=== PATIENT | male | born 1985 | race Caucasian/White ===

== ENCOUNTER 2024-09-21 14:15 | Outpatient (AMB) | payer OTHER, SELFPAY ==
--- NOTE | 2024-09-21 14:11 | A.OFFPC_ITS ---
Vital Signs 09/21/24 14:20 Height 5 ft 10 in Weight 162 lb BMI 23.2 BP 122/76 Respiration 14 Pulse 47 L Pulse Source Pulse Oximeter Temp 97.8 F Temp Source Temporal Artery Scan Pulse Oximetry (%) 99 Oxygen Delivery Method Room Air Intake Visit Reasons: establish care Train Driver Required: No Accompanied by: Self / Same As Patient Allergies No Known Allergies Allergy (Verified 09/21/24 14:39) Medication List - Last Reconciled 09/21/24 by Ina Diaz PA-C No Known Home Meds Tobacco use date assessed: 09/21/24 Dental Screening Dental Screen Date: 09/21/24 Did you have a dental visit in the last 12 months?: Yes Did you have a dental problem in the last 6 months where you did not have access to dental care?: No Was dental information given to patient?: Patient has dentist HPI establish care HPI Details The patient is a 39-year-old male presenting to establish new primary care provider due to patient just moved here from the [employer] [place] from [facility] he is currently at [facility]. He is presenting with left knee pain. The pain started following a skiing injury in June, characterizing as severe initially, affecting mobility and necessitating assistance. Despite engaging in physical therapy, the pain persisted and maintains a sharp quality upon weight- bearing activities. Recently, the pain has taken on a deeper, dull quality but continues to be provoked by activities such as ascending stairs. Swelling is consistently noted around the kneecap, while the lower leg remains unaffected. An MRI had been previously recommended in [facility], though not completed before his relocation. Previous blood assessments show no abnormalities. 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 - The patient is ; his is Rad xiong and currently residing with him. - Regularly engages in cardiovascular ex ercise, contributing to a naturally low resting heart rate. - Resides in [place]. [facility] Medical History (Updated 09/21/24 @ 15:07 by Ina Diaz PA-C) Erectile dysfunction Establishing care with new doctor, encounter for Left knee pain Skiing accident Family History Father No problems noted. Mother No problems noted. Social History Housing: Apartment Alcohol intake: current Alcohol intake frequency: a few times a month Patient Tobacco Use Status: Never used Tobacco service: No Current occupational status: employed Cognitive needs: No Hearing needs: No Vision needs: No Questionnaire PHQ-9 Over the last 2 weeks, how often have you been bothered by any of the following problems? 1. Little interest or pleasure in doing things: not at all 2. Feeling down, depressed, or hopeless: not at all 3. Trouble falling or staying asleep, or sleeping too much: not at all 4. Feeling tired or having little energy: not at all 5. Poor appetite or overeating: not at all 6. Feeling bad about yourself - or that you are a failure or have let yourself or your family down: not at all 7. Trouble concentrating on things, such as reading the newspaper or watching television: not at all 8. Moving or speaking so slowly that other people could have noticed. Or the opposite - being so fidgety or restless that you have been moving around a lot more than usual: not at all 9. Thoughts that you would be better off or of hurting yourself in some way: not at all Total score: 0 Depression Screening Interpretation: Negative Depression Screening Done: Yes 20080 - PHQ-9 Billing: Yes Source: Developed by Drs. Theron Padilla, Elda Talley, Demetri Fan and colleagues, with an educational maricruz from [employer]. Thrive Questionnaire Date Thrive assessed: 09/21/24 I am a: Patient What is your living situation today?: I have a steady place to live Within the past 12 months, did the food you bought not last and you didn't have the money to get more?: Never true Within the past 12 months, did you worry whether your food would run out before you got money to buy more?: Never true Do you have trouble paying for medicines?: No Do you have trouble getting transportation to medical appointments?: No Do you have trouble paying your heating and electricity bill?: No Do you have trouble taking care of your child, family member or friend?: No Do you have trouble with day-to-day activities such as bathing, preparing meals, shopping, managing finances, etc.?: No Are you currently unemployed and looking for a job?: No Are you interested in more education?: No Please select the resources that you would like help with: None THRIVE Score: 0 AUDIT C Alcohol Use Questionnaire (AUDIT-C) 1. How often do you have a drink containing alcohol?: 2-4 times a month 2. How many drinks containing alcohol do you have on a typical day when you are drinking?: 1 or 2 3. How often do you have six or more drinks on one occasion?: Never Total Score: 2 Score Reviewed/Action Taken: No YESICA-7 AMB Questionnaire YESICA-7 Date YESICA - 7 assessed: 09/21/24 Feeling nervous, anxious, or on edge: 0 = Not at all Not being able to stop or control worryin = Not at all Worrying too much about different things: 0 = Not at all Trouble relaxin = Not at all Being so restless that it is hard to sit still: 0 = Not at all Becoming easily annoyed or irritable: 0 = Not at all Feeling afraid as if something awful might happen: 0 = Not at all Total YESICA-7 score (0-4 normal; 5-9 mild; 10-14 moderate; 15-21 severe): 0 Source: Developed by Drs. Theron Padilla, Elda Talley, Demetri Fan and colleagues, with an educational maricruz from [employer]. YESICA-7 Assessment Billing YESICA-7 Assessment Tool: YESICA-7 Assessment 91950 Review of Systems Const Details: - Musculoskeletal: Reports left knee pain, swelling localized to the kneecap; denies additional leg swelling. - Constitutional: Denies recent unintended weight changes. - Gastrointestinal: Denies black or bloody stools. - Cardiovascular: Denies chest pain. - Respiratory: Denies shortness of breath. - Genitourinary: Reports erectile dysfunction; denies changes in urination patterns. Physical exam (Primary Care) Vital Signs: Last Vital Signs Temp 97.8 F 09/21/24 14:20 Pulse 47 L 09/21/24 14:20 Resp 14 09/21/24 14:20 BP 122/76 09/21/24 14:20 Pulse Ox 99 09/21/24 14:20 Oxygen Delivery Method Room Air 09/21/24 14:20 Care Plan Goal for BP management: <140/90 at Goal BMI result Body Mass Index 23.2 normal bmi Tobacco/Smoking Status: Tobacco use Status Tobacco use date assessed 09/21/24 09/21/24 14:13 Patient Tobacco Use Status Never used Tobacco 09/21/24 14:24 PHQ-9: PHQ-9 Score PHQ-9: Total score 0 09/21/24 14:25 Depression Screening Interpretation: Negative Thrive Assessment: Date of Thrive Assessment Date Thrive assessed 09/21/24 09/21/24 14:13 Const Other: Appearance: Alert. Oriented X3. No acute distress. Head: Normal external exam. Normocephalic. Atraumatic. Eyes: Pupils are equal, round, and reactive to light. Extraocular movements intact. Conjunctiva and sclera normal. Eyelids normal. Ears: External auditory canal normal. Tympanic membranes normal. Throat: Pharynx normal. Uvula midline. Moist mucous membranes. Neck: Normal inspection. Neck supple. Full range of motion. No adenopathy. Thyroid Normal. No meningeal signs. No neck mass noted. Cardiovascular: Normal heart rate and rhythm. Heart sound normal. No murmurs noted. Pulses normal throughout. Respiratory: No respiratory distress. Painless inspiration. Breath sounds normal. No wheezes/rales/rhonchi noted. Chest nontender. No accessory muscle usage noted or decreased air movement noted. Abdomen: Soft and nontender. Bowel sounds normal in all 4 quadrants. No distention noted. No organomegaly noted. No visible injury noted. Back: No costovertebral angle tenderness. Full range of motion noted. Skin: Skin warm and dry. Normal skin color. Normal skin turgor. No rashes/lesions/lacerations noted. Extremities: Swelling noted around the left knee at the medial and lateral aspect of the knee along with the suprapatellar. Painful movements when weight is applied to the left knee. No lower extremity edema beyond the knee. Extremities exhibit normal range of motion. Extremities nontender except for the left knee. Neuro: Oriented X 3. No motor deficit. No sensory deficit. Reflexes normal. Coding Level of Care Code New Pt Level 4 (07751) Complex EM visit Add On G2211 Diagnoses Establishing care with new doctor, encounter for Z76.89 Erectile dysfunction N52.9 Left knee pain M25.562 Additional Codes PHQ-9 - 00137 - PHQ-9 Billing: Yes ([id number]) YESICA-7 Assessment Billing - YESICA-7 Assessment Tool: YESICA-7 Assessment 80331 ([id number]) Assessment & Plan Assessment & Plan (1) Establishing care with new doctor, encounter for: Code(s): Z76.89 - Persons encountering health services in other specified circumstances Category: Medical (2) Erectile dysfunction: Code(s): N52.9 - Male erectile dysfunction, unspecified Category: Medical Plan: Management includes continuation of Cialis 10 mg. Additional evaluation with testosterone level testing will be conducted to explore underlying causes. Patient education on condition implications and future fertility considerations provided. Condition is chronic and stable continue to monitor. (3) Left knee pain: Comment: from Skiing accident Code(s): M25.562 - Pain in left knee Category: Medical Plan: The patient has been experiencing persistent pain in the left knee following a skiing injury. An MRI has been ordered to assess potential meniscal or ligamentous involvement, providing guidance for further management, which may include surgical considerations if indicated. Plan Plan Patient was informed and verbally consented to the use of an ambient scribe for clinic note documentation during this visit. 1. Left Knee Pain The patient has been experiencing persistent pain in the left knee following a skiing injury. An MRI has been ordered to assess potential meniscal or ligamentous involvement, providing guidance for further management, which may include surgical considerations if indicated. 2. Erectile Dysfunction Management includes continuation of Cialis 10 mg. Additional evaluation with testosterone level testing will be conducted to explore underlying causes. Patient education on condition implications and future fertility considerations provided. I reviewed with the patient the potential causes for his left knee pain, including meniscal or ligamentous damage, and the rationale for pursuing MRI imaging. I explained the importance of confirming the cause to appropriately direct treatment, which might include rest, continued physical therapy, or possibly surgical intervention, based on the MRI findings. Regarding erectile dysfunction, we discussed the ongoing need for Cialis, and I advised further hormonal evaluation to exclude underlying causes, with potential referral to urology for targeted management should deficiencies be noted. Recommendations were given for continued cardiovascular exercise while avoiding exacerbating activities like high-impact sports until knee evaluation is completed. I advised follow-up after MRI results to discuss further management, and emphasized the open line of communication via patient portal for any concerns or symptoms arise before the next scheduled visit. Orders: Orders Comprehensive [place]. Panel Fast Today Z00.00 - Encounter for general adult medical examination without abnormal findings Hemoglobin A1c Today Z00.00 - Encounter for general adult medical examination without abnormal findings Vitamin B12 and Folate Today Z00.00 - Encounter for general adult medical examination without abnormal findings TSH reflex Free T4 Today Z00.00 - Encounter for general adult medical examination without abnormal findings Testosterone, Free/Total Today Z00.00 - Encounter for general adult medical examination without abnormal findings MR knee LT wo con Today M25.562 - Pain in left knee, V00.328A - Other snow-ski accident, initial encounter Complete Blood Count Auto Diff Today Z00.00 - Encounter for general adult medical examination without abnormal findings C Reactive Protein Today Z00.00 - Encounter for general adult medical examination without abnormal findings Lipid Panel Today Z00.00 - Encounter for general adult medical examination without abnormal findings Liver Panel Today Z00.00 - Encounter for general adult medical examination without abnormal findings Magnesium Today Z00.00 - Encounter for general adult medical examination without abnormal findings Vitamin D 25-OH Total Today Z00.00 - Encounter for general adult medical examination without abnormal findings PSA,Total (Free>4and<10) Today Z00.00 - Encounter for general adult medical examination without abnormal findings Testosterone, Total Today Z00.00 - Encounter for general adult medical examination without abnormal findings Dihydrotestosterone Today Z00.00 - Encounter for general adult medical examination without abnormal findings DHEA Sulfate Today Z00.00 - Encounter for general adult medical examination without abnormal findings Medications: New tadalafil (Cialis) administer approximately 30min before sexual activity; do not use more than 1 dose per 24hrs 10 mg PO DAILY PRN 90 tabs 1RF sexual activity Patient Instructions: - Await contact regarding MRI appointment; follow up with our office if not contacted within one month. - Continue prescribed Cialis 10 mg as needed for erectile dysfunction. - Engage in low-impact cardiovascular exercises, avoiding activities that worsen knee pain. - Monitor knee swelling and note any changes in symptoms, seeking care if there is a significant increase in pain or swelling. - Obtain prescribed blood tests, including testosterone level, within the next month to assess any underlying causes for erectile dysfunction. - Use the patient portal to communicate any new symptoms or concerns, and for prescriptions refills and lab reminders.
[2024-09-21 14:20] VITALS: BP 122/76; PULSE 47; RESP 14; TEMP 36.6; O2SAT 99; BMI 23.2
== END 2024-09-21 14:59 | disposition home or self-care (01) ==
LOC: HO.HMCSH 14:15
PROVIDERS: PCP Internal Medicine; Visit Provider Physician Assistant Medical
DX: Z76.89 Persons encountering health services in other specified circumstances (principal); N52.9 Male erectile dysfunction, unspecified; M25.562 Pain in left knee

== ENCOUNTER → 2024-09-21 14:15 | Outpatient (BNVA) | payer OTHER, SELFPAY | PROVIDERS: PCP Internal Medicine; Visit Provider Physician Assistant Medical | DX: Z76.89 Persons encountering health services in other specified circumstances (principal); N52.9 Male erectile dysfunction, unspecified; M25.562 Pain in left knee | CPT/HCPCS: 96127; 99202 ==

== ENCOUNTER → 2024-10-05 07:16 | Outpatient (BNV) | payer OTHER, SELFPAY | PROVIDERS: Visit Provider Radiology Diagnostic Radiology | DX: M25.562 Pain in left knee (principal) | CPT/HCPCS: 73721 ==

== ENCOUNTER 2024-10-05 07:23 | Outpatient (REF) | payer OTHER, SELFPAY ==
--- NOTE | ~2024-10-05 | MR_ITS ---
EXAMINATION: MRI LEFT KNEE WITHOUT CONTRAST HISTORY: M25.562 - Pain in left knee COMPARISON: There are no prior studies available for comparison. TECHNIQUE: Coronal T1 and fat-suppressed proton density, sagittal proton density and fat-suppressed proton density, and axial fat suppressed T2 weighted MR images of the left knee were obtained. FINDINGS: Bone marrow: There is a moderate-sized region of bone marrow edema involving the anterior aspect of the lateral femoral condyle, consistent with a bone contusion. Joint effusion: There is a large joint effusion. Mosqueda's cyst: There is no Mosqueda's cyst. Articular cartilage: There are cartilage fissures involving the patellar cartilage. Muscles/soft tissues: The visualized muscles demonstrate normal signal intensity. Anterior cruciate ligament: Intact Posterior cruciate ligament: Intact Medial collateral ligament: Intact Lateral collateral ligament: Intact Medial meniscus: Intact Lateral meniscus: Intact Flexor mechanism: The popliteus, gastrocnemius, and hamstring tendons are intact. Quadriceps tendon: Intact Patellar tendon: Intact Patellar retinacula: Intact MR/MR knee LT wo con IMPRESSION: 1. Bone contusion involving the anterior aspect of the lateral femoral condyle. 2. Cartilage fissures involving the patellar cartilage. Electronically signed by: Theron Johnson MD 10/05/2024 08:33 AM EDT
== END 2024-10-05 07:24 | disposition home or self-care (01) ==
LOC: HO.MRI 07:23
PROVIDERS: Visit Provider Physician Assistant Medical
DX: M25.562 Pain in left knee (principal); V00.328D Other snow-ski accident, subsequent encounter
CPT/HCPCS: 73721

== ENCOUNTER 2024-11-28 09:22 | Outpatient (REF) | payer OTHER, SELFPAY ==
--- NOTE | ~2024-11-28 | XR_ITS ---
EXAMINATION: XR SHOULDER, LEFT CLINICAL INFORMATION: M25.512 - Pain in left shoulder COMPARISON: None available. TECHNIQUE: AP external rotation, Grashey, scapular Y, and axillary views of the left shoulder. FINDINGS: Normal bone mineralization. No fracture or dislocation. Normal alignment. The glenohumeral joint is normal. The AC joint is normal. There is a neutral lateral acromion. No undersurface spurring. The subacromial space is preserved. Within the proximal humeral diaphysis, there is a mixed lytic and sclerotic cortically based lesion with thin zone of transition, no significant endosteal scalloping, and no permeative or erosive changes. This has features consistent with a benign lesion, namely a fibrous cortical defect. Remainder of the soft tissue and bony structures appear normal. XR/XR shoulder LT min 2V IMPRESSION: 1. Normal left shoulder. 2. Bone lesion in the proximal humeral diaphysis consistent with a benign fibrous cortical defect. No further imaging recommended. Electronically signed by: George Deleon MD 11/28/2024 11:36 AM EDT
== END 2024-11-28 09:23 | disposition home or self-care (01) ==
LOC: HO.HMGCX 09:22
PROVIDERS: PCP Physician Assistant Medical; Visit Provider Physician Assistant Medical
DX: M25.512 Pain in left shoulder (principal); Z13.31 Encounter for screening for depression
CPT/HCPCS: 73030; 96127; 99212

== ENCOUNTER 2024-11-28 09:22 | Outpatient (AMB) | payer OTHER, SELFPAY ==
[2024-11-28 09:22] VITALS: BP 120/72; PULSE 47; RESP 16; TEMP 37; O2SAT 97; BMI 23.5
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
== END 2024-11-28 10:01 | disposition home or self-care (01) ==
LOC: HO.HMCSH 09:22
PROVIDERS: Visit Provider Physician Assistant Medical
DX: M25.519 Pain in unspecified shoulder (principal)

== ENCOUNTER → 2024-11-28 11:04 | Outpatient (BNV) | payer OTHER, SELFPAY | PROVIDERS: PCP Physician Assistant Medical; Visit Provider Radiology Diagnostic Radiology | DX: M85.01 Fibrous dysplasia (monostotic), shoulder (principal) | CPT/HCPCS: 73030 ==

== ENCOUNTER → 2024-12-01 15:22 | Outpatient (BNV) | payer OTHER, SELFPAY | PROVIDERS: PCP Physician Assistant Medical; Visit Provider Radiology Diagnostic Radiology | DX: S43.432A Superior glenoid labrum lesion of left shoulder, initial encounter (principal) | CPT/HCPCS: 73221 ==

== ENCOUNTER 2024-12-01 15:28 | Outpatient (REF) | payer OTHER, SELFPAY ==
--- NOTE | ~2024-12-01 | MR_ITS ---
EXAMINATION: MRI Shoulder without contrast, left TECHNIQUE: Multiplanar multisequence MR imaging through an upper extremity joint without contrast. INDICATION: Left shoulder pain PRIOR: November 28, 2024 x-ray FINDINGS: Rotator Cuff: There is fluid signal within supraspinatus tendon at the greater tuberosity consistent with a bursal sided partial-thickness tear involves less than half the tendon thickness. There are no other tears. Labrum: There is ill-defined intermediate signal at the biceps labral junction consistent with a small focal subtle tear. There is extension into the posterior labrum down to 3:00. Long biceps tendon: The long biceps tendon is intact and not displaced from the groove. Acromioclavicular joint: AC joint is intact and not degenerated. Acromial morphology is flat, type I. There is no subacromial subdeltoid bursal effusion. There is trace fluid. Axillary pouch: The axillary pouch is intact. Articular cartilage: There are no articular cartilage defects. Bones/Marrow: The cephalad margin of the central medullary lesion in the proximal humeral diaphysis demonstrates hypointensity on T1 imaging and hyperintensity on fluid sensitive sequences with sclerotic margins. Soft tissues: There is no muscle edema, atrophy, or fatty streaking. MR/MR shoulder LT wo con IMPRESSION: There is a shallow bursal sided partial-thickness tear of supraspinatus tendon at the footprint involving less than half the tendon thickness. SLAP tear extends posteriorly to 3:00. Incompletely imaged intramedullary lesion in the mid proximal humeral diaphysis. On recent x-ray, it has a nonaggressive appearance. Electronically signed by: Juan A Henriquez MD 12/01/2024 04:09 PM EDT
== END 2024-12-01 15:29 | disposition home or self-care (01) ==
LOC: HO.MRI 15:28
PROVIDERS: PCP Physician Assistant Medical; Visit Provider Physician Assistant Medical
DX: M25.512 Pain in left shoulder (principal)
CPT/HCPCS: 73221

== ENCOUNTER 2025-01-18 08:51 | Outpatient (AMB) | payer OTHER, SELFPAY ==
[2025-01-18 09:05] VITALS: BMI 23.4
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
== END 2025-01-18 09:43 | disposition home or self-care (01) ==
LOC: HO.HOS 08:52
PROVIDERS: PCP Physician Assistant Medical; Visit Provider Physician Assistant
DX: M75.102 Unspecified rotator cuff tear or rupture of left shoulder, not specified as traumatic (principal); S43.439A Superior glenoid labrum lesion of unspecified shoulder, initial encounter
CPT/HCPCS: 99203; G2211

== ENCOUNTER → 2025-01-18 08:51 | Outpatient (BNVA) | payer OTHER, SELFPAY | PROVIDERS: PCP Physician Assistant Medical; Visit Provider Physician Assistant | DX: M75.102 Unspecified rotator cuff tear or rupture of left shoulder, not specified as traumatic (principal); S43.432D Superior glenoid labrum lesion of left shoulder, subsequent encounter | CPT/HCPCS: 99202 ==

== ENCOUNTER 2025-01-20 13:31 | Outpatient (AMB) | payer OTHER, SELFPAY ==
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
[2025-01-20 13:35] VITALS: BP 132/61; PULSE 98; RESP 16; TEMP 36.5; O2SAT 99; BMI 23.4
== END 2025-01-20 15:24 | disposition home or self-care (01) ==
LOC: HO.HMCSH 13:31
PROVIDERS: PCP Physician Assistant Medical; Visit Provider Physician Assistant Medical
DX: M72.2 Plantar fascial fibromatosis (principal); R10.9 Unspecified abdominal pain

== ENCOUNTER → 2025-01-20 13:31 | Outpatient (BNVA) | payer OTHER, SELFPAY | PROVIDERS: PCP Physician Assistant Medical; Visit Provider Physician Assistant Medical | DX: M72.2 Plantar fascial fibromatosis (principal); R10.9 Unspecified abdominal pain; M79.671 Pain in right foot; M79.672 Pain in left foot | CPT/HCPCS: 96127; 99212 ==

== ENCOUNTER 2025-02-08 12:50 | Outpatient (REF) | payer OTHER, SELFPAY ==
--- NOTE | ~2025-02-08 | XR_ITS ---
Exam: XR FOOT 3 OR MORE VIEWS BILATERAL, bilateral foot x-rays TECHNIQUE: AP, OBL and lateral views lower extremity, bilateral feet INDICATION: M79.671 - Pain in right foot COMPARISON: None available. FINDINGS: RIGHT FOOT: Joint spaces are preserved. There are no degenerative changes. There is no joint malalignment. There are no calcaneal spurs. There is a bipartite medial sesamoid of the great toe. 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 LEFT FOOT: Joint spaces are preserved. There are no degenerative changes. There is no joint malalignment. There are no calcaneal spurs. There is a bipartite lateral sesamoid of the great toe. 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 XR/XR Foot Hardik 3V IMPRESSION: Right foot: Unremarkable right foot Left foot: Unremarkable left foot. Electronically signed by: Juan A Henriquez MD 02/08/2025 02:13 PM EDT
[2025-02-08 14:33] LABS: MANUAL DIFF FLAG NO
[2025-02-08 15:06] LABS: Hematocrit 39.8 % (42.0-52.0); Hemoglobin 14.5 g/dl (14.0-18.0); Imm Gran Abs Auto 0.01 X10*3/uL (0.00-0.03); Imm Gran Pct Auto 0.2 % (0.0-0.4); Lymphocytes Absolute Auto 1.8 X10*3/uL (1.2-4.9); Mean Corpuscular HGB Conc 36.4 g/dl (31.0-36.0); Mean Corpuscular Hemoglobin 31.5 pg (27.0-33.0); Mean Corpuscular Volume 86.5 fL (80.0-98.0); NRBC Abs Auto 0.000 X10*3/uL (0.0-0.012); NRBC Pct Auto 0.0 /100WBC (0.0-0.2); Platelet Count 223 X10*3/uL (160-400); Red Blood Count 4.60 X10*6/uL (4.60-5.80); White Blood Count 5.5 X10*3/uL (4.8-10.8)
[2025-02-08 15:41] LABS: Appearance Urine Clear; Glucose Urine UA Negative (Negative); PH 6.5 (5.0-9.0); Specific Gravity - Urine 1.025 (1.005-1.025); UMIC TRIGGER UACC YES
[2025-02-08 16:17] LABS: PSA,Total (Free>4and<10) 0.49 ng/mL (0.00-4.00)
[2025-02-08 16:30] LABS: Folate 9.6 ng/mL (> or = 4.0); Vitamin B12 428 pg/mL (200-900)
[2025-02-08 18:01] LABS: Alanine Aminotransferase 22 U/L (0-40); Albumin Level 4.9 g/dL (3.5-5.0); Alkaline Phosphatase 65 U/L (39-117); Anion Gap 11 (12-20); Aspartate Amino Transferase 32 U/L (5-37); Blood Urea Nitrogen 16 mg/dL (9-16); Calcium 9.3 mg/dL (8.4-10.2); Carbon Dioxide 28 mmol/L (22-29); Chloride 107 mmol/L (96-108); Cholesterol 173 mg/dL (<200); Estimated Glomerular Filt Rate > 60; HDL Cholesterol 41 mg/dL (>40); Magnesium 2.3 mg/dL (1.6-2.6); Potassium 3.9 mmol/L (3.3-5.1); Sodium 142 mmol/L (135-145); Total Protein 7.2 g/dL (6.5-8.0); Triglycerides 168 mg/dL (<150)
[2025-02-13 15:03] LABS: Testosterone, Free 54.3 pg/mL (35.0-155.0)
== END 2025-02-08 12:51 | disposition home or self-care (01) ==
LOC: HO.XRAY 12:50
PROVIDERS: Absent Provider Physician Assistant Medical; PCP Physician Assistant Medical; Visit Provider Student in an Organized Health Care Education/Training Program
DX: Z00.00 Encounter for general adult medical examination without abnormal findings (principal); M72.2 Plantar fascial fibromatosis; M77.52 Other enthesopathy of left foot and ankle; M77.51 Other enthesopathy of right foot and ankle; R10.9 Unspecified abdominal pain; Z12.5 Encounter for screening for malignant neoplasm of prostate; Z13.6 Encounter for screening for cardiovascular disorders; Z13.1 Encounter for screening for diabetes mellitus; Z79.899 Other long term (current) drug therapy
CPT/HCPCS: 36415; 73630; 80053; 80061; 81001; 82248; 82306; 82607; 82627; 82642; 82746; 83036; 83735; 84153; 84402; 84403; 84443; 85025; 85027; 86140; 99202

== ENCOUNTER 2025-02-08 12:50 | Outpatient (AMB) | payer OTHER, SELFPAY ==
[2025-02-08 13:02] VITALS: BMI 23.0
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
== END 2025-02-08 13:23 | disposition home or self-care (01) ==
PROVIDERS: PCP Physician Assistant Medical; Visit Provider Student in an Organized Health Care Education/Training Program
DX: M79.671 Pain in right foot (principal); M79.672 Pain in left foot; M72.2 Plantar fascial fibromatosis; M77.52 Other enthesopathy of left foot and ankle; M77.51 Other enthesopathy of right foot and ankle
CPT/HCPCS: 99204

== ENCOUNTER → 2025-02-08 13:53 | Outpatient (BNV) | payer OTHER, SELFPAY | PROVIDERS: Absent Provider Physician Assistant Medical; PCP Physician Assistant Medical; Visit Provider Radiology Diagnostic Radiology | DX: M79.673 Pain in unspecified foot (principal) | CPT/HCPCS: 73630 ==

== ENCOUNTER 2025-02-24 10:08 | Outpatient (AMB) | payer OTHER, SELFPAY ==
[2025-02-24 10:17] VITALS: BMI 23.0
--- NOTE | 2025-02-24 10:17 | A.OFFVIS_ITS ---
Vital Signs 02/24/25 10:17 Height 5 ft 10 in Weight 160 lb BMI 23.0 Intake Visit Reasons: OV - Bilateral Plantar Fasciitis s/p XR Intake Note: Dimitrios is a 39 year old male who presents today for a follow up of his Bilateral Plantar Fasciitis. At his last visit he was prescribed a Medrol Dose Pack and given a home exercise program. If he does not find any relief we would consider night splints, a referral to physical therapy and possible injections. Xrays obtained 02/08/25. Patient reports he has not seen any improvement at this time Allergies No Known Allergies Allergy (Verified 02/24/25 10:18) HPI Comments Details: The patient is a 39-year-old male presenting for follow-up of bilateral plantar fasciitis. The patient reports that the pain has remained unchanged since the last visit, despite taking the Medrol Dosepak, which did not result in any side effects. He states he has been doing the at-home stretching exercises as well. Patient states he continues to use OTC inserts. He denies any new pedal injuries. He denies any other pedal concerns. has been using inserts and performing exercises, including massaging, as part of the management plan. [facility] Medical History (Updated 02/28/25 @ 08:35 by Vivien Ricardo DPM) Os trigonum Microscopic hematuria Other enthesopathy of right foot and ankle Other enthesopathy of left foot and ankle Plantar fasciitis, bilateral Abdominal pain Plantar fasciitis Bilateral foot pain Bone lesion SLAP (superior labrum from anterior to posterior) tear Tear of left supraspinatus tendon Left shoulder pain Other articular cartilage disorders, unspecified site Erectile dysfunction Establishing care with new doctor, encounter for Left knee pain Skiing accident Family History Father No problems noted. Mother No problems noted. Social History Housing: Apartment Alcohol intake: current Alcohol intake frequency: a few times a month Patient Tobacco Use Status: Never used Tobacco service: Yes Current occupational status: employed Current occupation: [employer], left hand dominant Cognitive needs: No Hearing needs: No Vision needs: No Review of Systems Const Details: - Musculoskeletal: Reports continued bilateral foot pain due to plantar fasciitis. All systems reviewed & are unremarkable except as noted in HPI and below Physical Exam Vital Signs: BMI result Body Mass Index 23.0 Extrem Other: Bilateral lower extremity focused physical exam: Derm: Skin supple and turgor WNL. No open lesions, abrasions, or wounds noted. No clinical signs of infection noted. No ecchymosis or discoloration noted. No maceration noted. Vasc: DP/PT pulses palpable. CFT < 3 secs. Temp gradient is warm to warm. No edema noted. Pedal hair present. No varicosities noted. Neuro: Protective sensations grossly intact. MSK: Pain on palpation to the plantar aspects of the calcaneus in the area of the medial and central calcaneal tubercles. Positive windlass mechanisms B/L with taut presentation of plantar fascia B/L. Pain noted along the plantar arches of the feet. Mildly antalgic gait unassisted. MMT 5/5. No crepitus noted. ROM of the forefoot, hindfoot, and ankles WNL. Results Reviewed Results Reviewed: Podiatry read of B/L foot xrays (02/08/25): Joint spacing WNL B/L. Os trigonum noted B/L. No Calcaneal spurring noted B/L. No acute fractures or dislocations noted B/L. B/L foot xrays (02/08/25): FINDINGS: RIGHT FOOT: Joint spaces are preserved. There are no degenerative changes. There is no joint malalignment. There are no calcaneal spurs. There is a bipartite medial sesamoid of the great toe. 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 LEFT FOOT: Joint spaces are preserved. There are no degenerative changes. There is no joint malalignment. There are no calcaneal spurs. There is a bipartite lateral sesamoid of the great toe. 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 IMPRESSION: Right foot: Unremarkable right foot Left foot: Unremarkable left foot. 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 I discussed with the patient the findings of the x-rays, which showed no fractures or bone spurs on the heel but revealed an ossicle on the back of the ankle, consistent with an os trigonum. We talked about the congenital nature of the condition and the potential for limited range of motion. I recommended a night splint and NSAIDs for managing plantar fasciitis, with the possibility of cortisone injections and PT if pain persists. I advised the patient to return in three weeks for a follow-up and to contact us if there is any worsening or excruciating pain. - Recommended the use of a night splint to maintain dorsiflexion during sleep to alleviate plantar fasciitis symptoms. Provided patient with night splints - patient states he will pick and shovel worker the night splints on Thursday due to transportation. - Continue with NSAIDs to manage inflammation and pain associated with plantar fasciitis. - Consider cortisone injection and PT if pain persists after conservative measures, with a limit of three injections per year to prevent ligament weakening. - Advised patient to avoid barefoot walking and to wear supportive shoe gear. - Patient may continue to wear OTC inserts. RTC in 3 weeks for re-evaluation of symptoms. Coding Level of Care Code Est Pt Level 4 (68271) Diagnoses Bilateral foot pain M79.671; M79.672 Plantar fasciitis, bilateral M72.2 Other enthesopathy of left foot and ankle M77.52 Other enthesopathy of right foot and ankle M77.51 Os trigonum Q68.8 Time Spent (min) 30
== END 2025-02-24 10:48 | disposition home or self-care (01) ==
LOC: HO.HPODS 10:08
PROVIDERS: PCP Physician Assistant Medical; Visit Provider Student in an Organized Health Care Education/Training Program
DX: M79.671 Pain in right foot (principal); M79.672 Pain in left foot; M72.2 Plantar fascial fibromatosis; M77.52 Other enthesopathy of left foot and ankle; M77.51 Other enthesopathy of right foot and ankle; Q68.8 Other specified congenital musculoskeletal deformities
CPT/HCPCS: 99214

== ENCOUNTER → 2025-02-24 10:08 | Outpatient (BNVA) | payer OTHER, SELFPAY | PROVIDERS: PCP Physician Assistant Medical; Visit Provider Student in an Organized Health Care Education/Training Program | DX: M72.2 Plantar fascial fibromatosis (principal); M79.671 Pain in right foot; M79.672 Pain in left foot; M77.52 Other enthesopathy of left foot and ankle; M77.51 Other enthesopathy of right foot and ankle; Q68.8 Other specified congenital musculoskeletal deformities | CPT/HCPCS: 99212 ==

== ENCOUNTER 2025-03-01 15:52 | Outpatient (RCR) | payer OTHER, SELFPAY ==
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
--- NOTE | 2025-03-22 13:35 | MHC.PT.DC ---
[facility] [place] Office [place] Office [place] [facility] [address] Christopher Galeano [address] [phone] F: [phone] F: [phone] F: [phone] F: [phone] Physical Therapy Discharge Report Diagnosis: Lt RC (SUPRASPIN PARTIAL TEAR AND SLAP TEAR POSTERIORLY AT 3:00)AND SLAP Date of Surgery: Date of Evaluation: 02/07/25 Date of Discharge: 03/22/25 Treatments to Date: 7 Cancellations to Date: 1 No Shows to Date: 1 Discharge Status: Improved Function Independent with HEP Patient Elected to Stop Discharge Summary: RACHELE WAS RESPONDING WELL TO PT FOR HIS Lt SH- HE HAS A HEP AND WAS EDUC RE REVISEWD GYM WORKOUT TO REDUCE BIOMECHANICAL STRESS TO HIS SHOULDER COMPLEX. HE MAGNOLIA NOT ATTEND HIS LAST 2 SCHED PT APPTS, AND, THEREFORE, A FORMAL REASSESSMENT WAS NOT PERFORMED. Electronically signed by: RONALD ARMAS,PT Please sign and return to therapist. Thank you for your referral.
== END 2025-03-22 13:36 | disposition home or self-care (01) ==
LOC: HO.PT 15:52
PROVIDERS: PCP Physician Assistant Medical; Visit Provider Physician Assistant
DX: M75.102 Unspecified rotator cuff tear or rupture of left shoulder, not specified as traumatic (principal); S43.432A Superior glenoid labrum lesion of left shoulder, initial encounter
CPT/HCPCS: 87338; 97110; 97140; 97162; 97530

== ENCOUNTER 2025-03-16 08:39 | Outpatient (AMB) | payer OTHER, SELFPAY ==
--- NOTE | 2025-03-16 08:47 | A.OFFVIS_ITS ---
Vital Signs 03/16/25 08:52 Height 5 ft 10 in Weight 160 lb BMI 23.0 Intake Visit Reasons: f/u left shoulder per TM Intake Note: Juan is a 39 year old male who presents today as a follow up for his Left rotator cuff tear. At last visit on 01/18/25 we referred the patient to physical therapy. At today's visit patient reports improvement since his last visit. He has completed physical therapy with his last appointment on Thursday. He complains of right shoulder having the same exact pain however more intense the left. He states that initially he had bilateral shoulder pain however his left was the worse. Allergies No Known Allergies Allergy (Verified 03/16/25 09:04) Medication List - Last Reconciled 03/16/25 by Chung Hay PA-C methylprednisolone (Medrol (Keshawn)) PO PER PKG DIR tadalafil (Cialis) 10 mg PO DAILY PRN HPI HPI f/u left shoulder per TM: Details: 39-year-old gentleman returns to the office today for a follow-up left shoulder pain. Has completed physical therapy and feels overall the shoulder has improved but he continues to have occasional discomfort with certain activities such as reaching or sleeping at night. He is also complaining of new onset right shoulder pain which is similar to the left but feels more achy and heavy today. He notices the pain with lifting and reaching overhead and also sleeping at night. No recent injuries. [facility] Medical History (Updated 03/16/25 @ 09:13 by Chung Hay PA-C) Os trigonum Microscopic hematuria Other enthesopathy of right foot and ankle Other enthesopathy of left foot and ankle Plantar fasciitis, bilateral Abdominal pain Plantar fasciitis Bilateral foot pain Bone lesion SLAP (superior labrum from anterior to posterior) tear Tear of left supraspinatus tendon Left shoulder pain Other articular cartilage disorders, unspecified site Erectile dysfunction Establishing care with new doctor, encounter for Left knee pain Skiing accident Family History Father No problems noted. Mother No problems noted. Social History Housing: Apartment Alcohol intake: current Alcohol intake frequency: a few times a month Patient Tobacco Use Status: Never used Tobacco service: Yes Current occupational status: employed Current occupation: [employer], left hand dominant Cognitive needs: No Hearing needs: No Vision needs: No Review of Systems Const All systems reviewed & are unremarkable except as noted in HPI and below Physical Exam Vital Signs: BMI result Body Mass Index 23.0 Const General: cooperative and no acute distress Orientation/consciousness: patient oriented x3 Resp Effort & Inspection: normal respiratory effort and able to speak in complete sentences Cardio Peripheral pulses: Peripheral pulses 2+ throughout Neuro General: patient oriented x3 Extrem Other: Left shoulder normal to inspection he has full range of motion in all planes . Good strength with rotator cuff strength testing. Negative apprehension test. Right shoulder normal to inspection. He has tenderness over the proximal biceps tendon and pain with [place]'s. Discomfort with rotator cuff strength testing specifically empty can and belly press. Assessment & Plan Assessment & Plan (1) Tear of left supraspinatus tendon: Code(s): M75.102 - Unspecified rotator cuff tear or rupture of left shoulder, not specified as traumatic Category: Medical (2) SLAP (superior labrum from anterior to posterior) tear: Code(s): S43.439A - Superior glenoid labrum lesion of unspecified shoulder, initial encounter Category: Medical (3) Left rotator cuff tear: Code(s): M75.102 - Unspecified rotator cuff tear or rupture of left shoulder, not specified as traumatic Category: Medical (4) Right shoulder tendonitis: Code(s): M77.8 - Other enthesopathies, not elsewhere classified Category: Medical Plan We discussed options which includes conservative management with home exercise program and modification of activities. I explained to the patient the right shoulder is likely irritation from compensation but also his active lifestyle. I encouraged him to work on rotator cuff and periscapular stabilization on both shoulders. I did send a prescription for a leave to the pharmacy to take twice a day for 2 weeks to help with the acute flare-ups. The patient will continue with activities as tolerated and if symptoms persist or worsen over the next 6-8 weeks she will contact our office otherwise follow up as needed. Coding Level of Care Code Est Pt Level 3 (79167) Complex EM visit Add On G2211 Diagnoses Tear of left supraspinatus tendon M75.102 SLAP (superior labrum from anterior to posterior) tear S43.439A Left rotator cuff tear M75.102 Right shoulder tendonitis M77.8
[2025-03-16 08:52] VITALS: BMI 23.0
== END 2025-03-16 09:07 | disposition home or self-care (01) ==
LOC: HO.HOS 08:40
PROVIDERS: PCP Physician Assistant Medical; Visit Provider Physician Assistant
DX: M75.102 Unspecified rotator cuff tear or rupture of left shoulder, not specified as traumatic (principal); S43.432A Superior glenoid labrum lesion of left shoulder, initial encounter; M77.8 Other enthesopathies, not elsewhere classified
CPT/HCPCS: 99213; G2211

== ENCOUNTER → 2025-03-16 08:39 | Outpatient (BNVA) | payer OTHER, SELFPAY | PROVIDERS: PCP Physician Assistant Medical; Visit Provider Physician Assistant | DX: M25.512 Pain in left shoulder (principal); M75.102 Unspecified rotator cuff tear or rupture of left shoulder, not specified as traumatic; S43.439A Superior glenoid labrum lesion of unspecified shoulder, initial encounter; M77.8 Other enthesopathies, not elsewhere classified | CPT/HCPCS: 99212 ==

== ENCOUNTER 2025-03-16 11:07 | Outpatient (AMB) | payer OTHER, SELFPAY ==
[2025-03-16 11:12] VITALS: BMI 23.0
--- NOTE | 2025-03-16 11:12 | A.OFFVIS_ITS ---
Vital Signs 03/16/25 11:12 Height 5 ft 10 in Weight 160 lb BMI 23.0 Intake Visit Reasons: B/L plantar fasciitis Intake Note: Dimitrios is a 39 year old male who presents today for a follow up visit of bilateral plantar fasciitis. Patient reports he is doing well, however does complaint of mild consistent pain, with no further concerns at this time. Allergies No Known Allergies Allergy (Verified 03/16/25 09:04) HPI Comments Details: The patient is a 39-year-old male presenting for a follow up of B/L plantar fasciitis. The patient reports that the pain is constant and primarily affects the left foot, with the central aspect of the calcaneus being the most painful area. The pain is less severe in the morning when night splints are used, as they help stretch the plantar fascia, reducing the sharp pain experienced upon taking the first step. The patient has been using night splints intermittently, which have provided some relief, but he continues to experience persistent pain. He is apprehensive about cortisone injections due to potential side effects and prefers to continue with conservative management, including the use of foot braces and stretching exercises. The patient has tried [id number] shoe inserts in the past without significant benefit and is considering prescribed inserts as a potential option. He states he has been intermittently doing the stretching exercises. He denies any other pedal concerns. [facility] Medical History (Updated 03/16/25 @ 09:13 by Chung Hay PA-C) Os trigonum Microscopic hematuria Other enthesopathy of right foot and ankle Other enthesopathy of left foot and ankle Plantar fasciitis, bilateral Abdominal pain Plantar fasciitis Bilateral foot pain Bone lesion SLAP (superior labrum from anterior to posterior) tear Tear of left supraspinatus tendon Left shoulder pain Other articular cartilage disorders, unspecified site Erectile dysfunction Establishing care with new doctor, encounter for Left knee pain Skiing accident Family History Father No problems noted. Mother No problems noted. Social History Housing: Apartment Alcohol intake: current Alcohol intake frequency: a few times a month Patient Tobacco Use Status: Never used Tobacco service: Yes Current occupational status: employed Current occupation: [employer], left hand dominant Cognitive needs: No Hearing needs: No Vision needs: No Review of Systems Const Details: - Musculoskeletal: Reports continued bilateral foot pain due to plantar fasciitis, left worse than right. All systems reviewed & are unremarkable except as noted in HPI and below Physical Exam Vital Signs: BMI result Body Mass Index 23.0 Extrem Other: Bilateral lower extremity focused physical exam: Derm: Skin supple and turgor WNL. No open lesions, abrasions, or wounds noted. No clinical signs of infection noted. No ecchymosis or discoloration noted. No maceration noted. Vasc: DP/PT pulses palpable. CFT < 3 secs. Temp gradient is warm to warm. No edema noted. Pedal hair present. No varicosities noted. Neuro: Protective sensations grossly intact. MSK: Pain on palpation to the plantar aspects of the calcaneus in the central aspect of the calcaneus, left worse than right. Positive windlass mechanisms B/L with taut presentation of plantar fascia. Pain noted along the plantar arches of the feet. Mildly antalgic gait unassisted. MMT 5/5. No crepitus noted. ROM of the forefoot, hindfoot, and ankles WNL. Results Reviewed Results Reviewed: Podiatry read of B/L foot xrays (02/08/25): Joint spacing WNL B/L. Os trigonum noted B/L. No Calcaneal spurring noted B/L. No acute fractures or dislocations noted B/L. B/L foot xrays (02/08/25): FINDINGS: RIGHT FOOT: Joint spaces are preserved. There are no degenerative changes. There is no joint malalignment. There are no calcaneal spurs. There is a bipartite medial sesamoid of the great toe. 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 LEFT FOOT: Joint spaces are preserved. There are no degenerative changes. There is no joint malalignment. There are no calcaneal spurs. There is a bipartite lateral sesamoid of the great toe. 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 IMPRESSION: Right foot: Unremarkable right foot Left foot: Unremarkable left foot. 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 I discussed with the patient the management options for plantar fasciitis, including the continued use of night splints, stretching exercises, and prescribed shoe inserts. We also talked about the potential benefits and risks of cortisone injections, emphasizing the importance of limiting them to three times a year to avoid tendon damage. The patient expressed apprehension about injections, so we agreed to continue with conservative management and reassess in three months. - Continue with the use of night splints and stretching exercises to manage plantar fasciitis. - Prescribed shoe inserts to provide additional support and alleviate pain. - Evaluate the need for physical therapy if conservative measures do not lead to improvement. - Discussed the option of cortisone injections if pain persists despite other interventions, with a maximum of three injections per year. - Continue with NSAIDs to manage inflammation and pain associated with plantar fasciitis. - Advised patient to avoid barefoot walking and to wear supportive shoe gear. RTC in 3 months. Medications: New [Inserts] As directed 1 ea 0RF M72.2 - Plantar fascial fibromatosis, M77.51 - Other enthesopathy of right foot and ankle, M77.52 - Other enthesopathy of left foot and ankle, M79.671 - Pain in right foot, M79.672 - Pain in left foot Coding Level of Care Code Est Pt Level 4 (50969) Diagnoses Bilateral foot pain M79.671; M79.672 Plantar fasciitis, bilateral M72.2 Other enthesopathy of left foot and ankle M77.52 Other enthesopathy of right foot and ankle M77.51 Os trigonum Q68.8 Time Spent (min) 33
== END 2025-03-16 11:32 | disposition home or self-care (01) ==
LOC: HO.HPODS 11:07
PROVIDERS: PCP Physician Assistant Medical; Visit Provider Student in an Organized Health Care Education/Training Program
DX: M79.671 Pain in right foot (principal); M79.672 Pain in left foot; M72.2 Plantar fascial fibromatosis; M77.52 Other enthesopathy of left foot and ankle; M77.51 Other enthesopathy of right foot and ankle; Q68.8 Other specified congenital musculoskeletal deformities
CPT/HCPCS: 99214

== ENCOUNTER 2025-03-23 12:11 | Outpatient (REF) | payer OTHER, SELFPAY ==
--- NOTE | ~2025-03-23 | CT_ITS ---
EXAMINATION: CT ABDOMEN AND PELVIS WITH CONTRAST CLINICAL INFORMATION: R10.9 - Unspecified abdominal COMPARISON: None available. TECHNIQUE: Multidetector volumetric images were obtained from the superior aspect of the liver through the pubic symphysis following administration 85 mL of Omnipaque 350 intravenous contrast. Sagittal and coronal reformatted images were obtained on the technologist's workstation. Oral contrast: No This CT examination was performed using dose optimization techniques as appropriate, variously including the following: *Automated exposure control *Adjustment of mA and/or kV according to patient size (this includes techniques or standardized protocols for targeted exams where dose is matched to indication/reason for exam; i.e. extremities or head) *Use of iterative reconstruction technique FINDINGS: LUNG BASES: The visualized lung bases are unremarkable. LIVER, GALLBLADDER, AND BILIARY TREE: The liver is normal in size, shape, and attenuation. No focal hepatic lesion or biliary ductal dilatation is present. The gallbladder is partially contracted. It appears unremarkable otherwise. PANCREAS: Unremarkable. SPLEEN: Unremarkable. ADRENAL GLANDS: Unremarkable. KIDNEYS AND URETERS: The kidneys are normal in size, shape, and attenuation. No hydronephrosis, hydroureter, or calculi seen. No perinephric stranding. BLADDER: Unremarkable. GASTROINTESTINAL TRACT: The small and large bowel are unremarkable. The appendix is not clearly identified. ABDOMINAL WALL: No significant hernia is appreciated. LYMPH NODES: Normal. VASCULAR: Unremarkable. PELVIC VISCERA: Unremarkable. OSSEOUS STRUCTURES: Chronic pars defect is present on the right at L5. There is subtle anterolisthesis and broad-based disc bulge. CT/CT abdomen pelvis w IV con IMPRESSION: No acute abnormality is evident to explain the patient's abdominal pain. 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 Fleischner guidelines were followed. Electronically signed by: Juan A Henriquez MD 03/23/2025 03:52 PM EST
[2025-03-23] MEDS: Barium Sulfate Oral (Berry) 450 ML ORAL.SUSP 900 ML PO (15:08)
[2025-03-23] MEDS: iohexoL 350 MG/ML 100 ML INFUS..BTL 85 ML IV (15:08)
== END 2025-03-23 12:12 | disposition home or self-care (01) ==
LOC: HO.CT 12:11
PROVIDERS: PCP Physician Assistant Medical; Visit Provider Physician Assistant Medical
DX: R10.9 Unspecified abdominal pain (principal)
CPT/HCPCS: 74177; Q9967

== ENCOUNTER → 2025-03-23 12:13 | Outpatient (BNV) | payer OTHER, SELFPAY | PROVIDERS: PCP Physician Assistant Medical; Visit Provider Radiology Diagnostic Radiology | DX: R10.9 Unspecified abdominal pain (principal) | CPT/HCPCS: 74177 ==

== ENCOUNTER 2025-04-25 08:25 | Outpatient (REF) | payer OTHER, SELFPAY | END 2025-04-25 08:26 | disposition home or self-care (01) | LOC: HO.LAB 08:25 | PROVIDERS: PCP Physician Assistant Medical; Visit Provider Urology | DX: N52.9 Male erectile dysfunction, unspecified (principal); N40.1 Benign prostatic hyperplasia with lower urinary tract symptoms; N13.8 Other obstructive and reflux uropathy | CPT/HCPCS: 81003; 88112; 99202 ==

== ENCOUNTER 2025-04-25 08:25 | Outpatient (AMB) | payer OTHER, SELFPAY ==
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
== END 2025-04-25 09:24 | disposition home or self-care (01) ==
LOC: HO.HUSH 08:26
PROVIDERS: PCP Physician Assistant Medical; Visit Provider Urology
DX: N40.1 Benign prostatic hyperplasia with lower urinary tract symptoms (principal); N13.8 Other obstructive and reflux uropathy; N52.9 Male erectile dysfunction, unspecified; R31.29 Other microscopic hematuria
CPT/HCPCS: 99203